=== PATIENT | male | born 1985 | race Hispanic/Latino ===

== ENCOUNTER 2017-03-16 14:37 | Observation (INO) | payer SELFPAY ==
[2017-03-16] MEDS ORDERED: Sodium Chloride 0.9% 1,000 ML IV STA (15:28)
[2017-03-16 15:50] LABS: BASO # 0.1 K/uL (0.0-0.2); BASO % 0.6 % (0.0-2.0); EOS % 0.2 % (0.0-4.0); HEMOGLOBIN 15.5 g/dL (12.0-18.0); LYMPH # 1.4 K/uL (1.0-4.3); LYMPH % 10.3 % (20.0-40.0); MEAN CELL VOLUME 85.1 fl (80.0-94.0); MEAN CORPUSCULAR HEMOGLOBIN 30.3 pg (27.0-31.0); MEAN CORPUSCULAR HGB CONC 35.6 g/dL (33.0-37.0); MEAN PLATELET VOLUME 8.7 fl (7.2-11.7); MONO # 0.7 K/uL (0.0-0.8); MONO % 5.2 % (0.0-10.0); NEUT # 11.2 K/uL (1.8-7.0); NEUT % 83.7 % (50.0-75.0); NRBC % 1.3 % (0.0-0.0); RBC 5.12 Mil/uL (4.40-5.90); RED CELL DISTRIBUTION WIDTH 12.3 % (11.5-14.5); WHITE BLOOD COUNT 13.4 K/uL (4.8-10.8)
[2017-03-16 16:09] LABS: ALB/GLOB RATIO 1.7 (1.0-2.1); ALBUMIN 4.7 g/dL (3.5-5.0); ALT/SGPT 44 U/L (21-72); AST/SGOT 38 U/L (17-59); BLOOD UREA NITROGEN 12 mg/dl (9-20); CALCIUM 9.6 mg/dL (8.4-10.2); GFR AFRICAN-AMERICAN > 60; GFR NON-AFRICAN AMERICAN > 60
--- NOTE | 2017-03-16 16:14 | ED PDOC ---
HPI: Seizure Time Seen by Provider: 03/16/17 15:07 Chief Complaint (Nursing): Seizure Chief Complaint (Provider): Seizure History Per: Patient, Other (Witnesses) History/Exam Limitations: no limitations Recent Seizure Activity Began: Just Before Arrival Additional Complaint(s): Brijesh is a 31 y/o male who was brought to the ED via EMS for seizure work-up. Patient was about to get on train and next remembers waking up. Possibly witnessed foaming at the mouth. Patient has had 3 seizures in the past, most recently 1 month ago. Currently he feels weak all over and complains of a mild headache following the episode. Denies neck pain, chest pain, nausea, vomiting, diarrhea, abdominal pain, shortness of breath, and vision changes. Not on any medications for seizures. Denies recent illness, and drug/alcohol intake. PMD: Unknown Past Medical History Reviewed: Historical Data, Nursing Documentation, Vital Signs Vital Signs: Last Vital Signs Temp Pulse Resp BP 148/98 H 03/16/17 14:41 Pulse Ox 98 03/16/17 16:46 - Medical History PMH: Anxiety, Seizures - Surgical History Surgical History: No Surg Hx - Family History Family History: States: Unknown Family Hx - Social History Current smoker - smoking cessation education provided: No Alcohol: None Drugs: Denies - Home Medications Home Medications: Ambulatory Orders Medication Instructions Recorded levETIRAcetam [Keppra] 500 mg PO BID 5 Days 03/16/17 - Allergies Allergies/Adverse Reactions: Allergies Allergy/AdvReac Type Severity Reaction Status Date / Time No Known Allergies Allergy Verified 03/16/17 14:43 Review of Systems ROS Statement: Except As Marked, All Systems Reviewed And Found Negative Constitutional: Positive for: Weakness (generalized) Eyes: Negative for: Vision Change Cardiovascular: Negative for: Chest Pain Respiratory: Negative for: Shortness of Breath Gastrointestinal: Negative for: Nausea, Vomiting, Abdominal Pain, Diarrhea Musculoskeletal: Negative for: Neck Pain Neurological: Positive for: Seizures (prior to arrival, possibly foaming at the mouth), Headache Physical Exam - Reviewed Nursing Documentation Reviewed: Yes Vital Signs Reviewed: Yes - Physical Exam Appears: Positive for: Non-toxic, No Acute Distress Head Exam: Positive for: NORMOCEPHALIC. Negative for: ATRAUMATIC (right lateral posterior scalp with laceration) Skin: Positive for: Normal Color, Warm, Dry Eye Exam: Positive for: EOMI, Normal appearance, PERRL ENT: Positive for: Other (Anterior left lateral tongue with small ecchymosis but no laceration. No loose teeth. No septal hematoma). Negative for: Nasal Congestion Neck: Positive for: Normal, Painless ROM, Supple Cardiovascular/Chest: Positive for: Regular Rate, Rhythm. Negative for: Murmur Respiratory: Positive for: Normal Breath Sounds. Negative for: Accessory Muscle Use, Respiratory Distress Gastrointestinal/Abdominal: Positive for: Normal Exam, Soft. Negative for: Tenderness Back: Positive for: Normal Inspection. Negative for: L CVA Tenderness, R CVA Tenderness, Vertebral Tenderness Extremity: Positive for: Normal ROM (fingers and hand with full ROM), Other ( right lateral 5th knuckle, dorsally with mild abrasion but no tenderness) Neurologic/Psych: Positive for: Alert, senior ux developer II-XII (intact), Oriented, Motor/ Sensory Deficits (strength is 4/5 for all extremities) - Laboratory Results Result Diagrams: 03/16/17 15:46 03/16/17 15:46 Interpretation Of Abn Labs: 13.4 wbc - ECG ECG: Positive for: Interpreted By Me, Viewed By Me ECG Rhythm: Positive for: Normal QRS, Normal ST Segment, Sinus Rhythm O2 Sat by Pulse Oximetry: 98 (RA) Pulse Ox Interpretation: Normal - Radiology X-Ray: Interpreted by Me, Viewed By Ca X-Ray Interpretation: No Acute Disease - CT Scan/US head and neck Other Rad Studies (CT/US): Read By Radiologist Other Rad Interpretation: no acute - Progress ED Course And Treament: 1859: Stable. TDAP utd. Family at bedside. Pt. and family state pt. was on keppra and stopped it on his own. Does not know dosing. Will give 1 dose 500mg and rx for 500mg po bid. AAOx3. Pain free. Tolerated PO. Ambulating with no issues. Fu with pcp and neurology. Medical Decision Making Medical Decision Making: Time: 15:29 Initial Plan: --CBC --CMP --Troponin I --Alcohol serum --Urine drug screen --Urine dipstick --CXR --EKG --NS IV 1000 ml at 1000 mls/hr --Blood glucose level --Pending CT C-spine and Head w/o contrast --Reevaluation Scribe Attestation: Documented by Neena Barrera, acting as a scribe for Ezekiel Hanks MD Provider Scribe Attestation: All medical record entries made by the Scribe were at my direction and personally dictated by me. I have reviewed the chart and agree that the record accurately reflects my personal performance of the history, physical exam, medical decision making, and the department course for this patient. I have also personally directed, reviewed, and agree with the discharge instructions and disposition. Disposition - Clinical Impression Clinical Impression: Head injury, Laceration, Seizure - Patient ED Disposition Is Patient to be Admitted: No Counseled Patient/Family Regarding: Studies Performed, Diagnosis, Need For Followup, Rx Given - Disposition Referrals: [facility] [Outside] - 03/18/17 Bernardo Lauren MD [Medical Doctor] - 03/18/17 Disposition: Routine/Home Disposition Time: 19:11 Condition: STABLE Additional Instructions: Return if not better in 3 days. Prescriptions: levETIRAcetam [Keppra] 500 mg PO BID 5 Days Instructions: Epilepsy (ED), Head Injury (ED), Laceration (ED) Forms: [employer] ([place])
[2017-03-16 16:57] LABS: BARBITURATES, UR NEGATIVE (NEGATIVE); BENZODIAZEPINES, UR NEGATIVE (NEGATIVE); OPIATES, UR NEGATIVE (NEGATIVE); PHENCYCLIDINE, UR NEGATIVE (NEGATIVE)
[2017-03-16] MEDS ORDERED: levETIRAcetam 100 mg/ml (5ml) Oral Syringe PO STA (19:13)
--- NOTE | 2017-03-16 19:57 | CT ---
PROCEDURE: CT HEAD WITHOUT CONTRAST. HISTORY: headache COMPARISON: None available. TECHNIQUE: Axial computed tomography images were obtained through the head/brain without intravenous contrast. Radiation dose: Total exam DLP = 1220 mGy-cm. This CT exam was performed using one or more of the following dose reduction techniques: Automated exposure control, adjustment of the mA and/or kV according to patient size, and/or use of iterative reconstruction technique. FINDINGS: HEMORRHAGE: No intracranial hemorrhage. BRAIN: No mass effect or edema. No atrophy or chronic microvascular ischemic changes. VENTRICLES: Unremarkable. No hydrocephalus. CALVARIUM: Unremarkable. PARANASAL SINUSES: Unremarkable as visualized. No significant inflammatory changes. MASTOID AIR CELLS: Unremarkable as visualized. No inflammatory changes. OTHER FINDINGS: None. IMPRESSION: Normal CT of the Head.
--- NOTE | 2017-03-16 19:58 | CT ---
PROCEDURE: CT Cervical Spine without contrast HISTORY: <neck pain> COMPARISON: None available. TECHNIQUE: Axial computed tomography images were obtained of the cervical spine without the use of intravenous contrast. Coronal and sagittal reformatted images were created and reviewed. Radiation dose: Total exam DLP = 697 mGy-cm. This CT exam was performed using one or more of the following dose reduction techniques: Automated exposure control, adjustment of the mA and/or kV according to patient size, and/or use of iterative reconstruction technique. FINDINGS: VERTEBRAE: No fracture. Normal alignment. No destructive bony lesion. DISCS/SPINAL CANAL/NEURAL FORAMINA: No significant central canal or neural foraminal stenosis. Discs heights are grossly preserved. PARASPINAL SOFT TISSUES: Unremarkable. OTHER FINDINGS: None. IMPRESSION: Unremarkable CT of the cervical spine.
--- NOTE | 2017-03-16 20:07 | CP.PCM.HP ---
History of Present Illness - History of Present Illness History of Present Illness: PCP: None Chief Complaint: Seizure episode Patient seen and examined in the ED with his parents present. HPI: The hx is obtained from the Patient and the medical record. 31 years old male, brought to the ED because of a witnessed seizure with him falling on the street hitting the right back of the head , foaming at the mouth with Brief LOC. No referral of tonic clonic episode nor Urinary incontinence, no biting of the tongue. He has hx of 3 prior seizures, all occurring in 2017, the last being one month ago. His seizure was worked up in a [facility] and he was discharged on Keppra which he has stopped taking. Here in the ED he was awake, alert given Oral keppra, His laceration at the left occipital sutured. he was about to be discharged and went to the Bathroom where he had a syncopal episode. because of this he is being admitted for Observation. PMH: Seizure; Anxiety PSH: No surgical hx SH: No illegal drug use; No alcohol use; No smoking FH: No hereditary diseases Allergies: NKDA Medication: Keppra 500mg BID. Patient not taking medication Present on Admission - Present on Admission Any Indicators Present on Admission: No History of DVT/PE: No History of Uncontrolled Diabetes: No Urinary Catheter: No Decubitus Ulcer Present: No Review of Systems - Constitutional Constitutional: Headache, Weakness. absent: Fever - EENT Eyes: absent: Diplopia, Floaters, Requires Corrective Lenses, Sees Flashes Ears: absent: Decreased Hearing, Ear Discharge, Ear Pain, Tinnitus Nose/Mouth/Throat: absent: Epistaxis, Nasal Congestion, Nasal Discharge, Sinus Pain, Sinus Pressure - Cardiovascular Cardiovascular: absent: Chest Pain, Diaphoresis, Dyspnea, Edema, Palpitations - Respiratory Respiratory: absent: Cough, Dyspnea, Wheezing, Stridor, Chest Congestion - Gastrointestinal Gastrointestinal: Nausea. absent: Constipation, Diarrhea - Genitourinary Genitourinary: absent: Dysuria, Flank Pain, Hematuria, Urinary Frequency - Musculoskeletal Musculoskeletal: absent: Arthralgias, Joint Swelling, Muscle Cramps, Myalgias - Integumentary Integumentary: absent: Pruritus, Rash, Skin Ulcer, Sores, Striae, Swelling - Neurological Neurological: Headaches, Weakness. absent: Confusion, Focal Weakness, Paresthesias - Psychiatric Psychiatric: Anxiety. absent: Depression, Panic Attacks - Endocrine Endocrine: absent: Palpitations, Polydipsia, Polyphagia, Polyuria - Hematologic/Lymphatic Hematologic: absent: Easy Bleeding, Easy Bruising Past Patient History - Past Social History Smoking Status: Never Smoked Chewing Tobacco Use: No Cigar Use: No Alcohol: None Drugs: Denies - CARDIAC Hx Cardiac Disorders: No - PULMONARY Hx Respiratory Disorders: No - NEUROLOGICAL Hx Seizures: Yes - HEENT Hx HEENT Problems: No - RENAL Hx Chronic Kidney Disease: No - ENDOCRINE/METABOLIC Hx Endocrine Disorders: No - HEMATOLOGICAL/ONCOLOGICAL Hx Blood Disorders: No - INTEGUMENTARY Hx Dermatological Problems: No - MUSCULOSKELETAL/RHEUMATOLOGICAL Hx Musculoskeletal Disorders: No - GASTROINTESTINAL Hx Gastrointestinal Disorders: No - GENITOURINARY/GYNECOLOGICAL Hx Genitourinary Disorders: No - PSYCHIATRIC Hx Anxiety: Yes - SURGICAL HISTORY Hx Surgeries: No - ANESTHESIA Hx Anesthesia: No Meds Home Medications: Home Medication List Medication Instructions Recorded Confirmed Type levETIRAcetam [Keppra] 500 mg PO BID 5 Days 03/16/17 Rx Allergies/Adverse Reactions: Allergies Allergy/AdvReac Type Severity Reaction Status Date / Time No Known Allergies Allergy Verified 03/16/17 14:43 Physical Exam - Constitutional Appears: No Acute Distress - Head Exam Head Exam: NORMAL INSPECTION, NORMOCEPHALIC Additional comments: [id number] at the right occipital region with valerie - Eye Exam Eye Exam: EOMI, Normal appearance Pupil Exam: NORMAL ACCOMODATION, PERRL - ENT Exam ENT Exam: Mucous Membranes Moist, Normal Exam, Normal External Ear Exam, Normal Oropharynx - Neck Exam Neck exam: Positive for: Full Rom, Normal Inspection. Negative for: Lymphadenopathy, Tenderness - Respiratory Exam Respiratory Exam: Clear to Auscultation Bilateral. absent: Rales, Rhonchi, Wheezes - Cardiovascular Exam Cardiovascular Exam: REGULAR RHYTHM, RRR, +S1, +S2. absent: Gallop - GI/Abdominal Exam GI & Abdominal Exam: Normal Bowel Sounds, Soft. absent: Mass, Organomegaly, Tenderness - Rectal Exam Rectal Exam: Deferred - Extremities Exam Extremities exam: Positive for: full ROM, normal inspection. Negative for: calf tenderness, pedal edema - Back Exam Back exam: NORMAL INSPECTION. absent: CVA tenderness (L), CVA tenderness (R) - Neurological Exam Neurological exam: Alert, CN II-XII Intact, Oriented x3, Reflexes Normal - Psychiatric Exam Psychiatric exam: Flat Affect - Skin Skin Exam: Dry, Intact, Normal Color, Warm Results - Vital Signs Recent Vital Signs: Last Vital Signs Temp Pulse Resp BP 148/98 H 03/16/17 14:41 Pulse Ox 98 03/16/17 19:13 - Labs Result Diagrams: 03/16/17 15:46 03/16/17 15:46 Labs: Laboratory Results - last 24 hr 03/16/17 03/16/17 03/16/17 15:46 15:46 16:09 WBC 13.4 H RBC 5.12 Hgb 15.5 Hct 43.5 MCV 85.1 MCH 30.3 MCHC 35.6 RDW 12.3 Plt Count 137 MPV 8.7 Neut % (Auto) 83.7 H Lymph % (Auto) 10.3 L [place] % (Auto) 5.2 Eos % (Auto) 0.2 Baso % (Auto) 0.6 Neut # 11.2 H Lymph # 1.4 [place] # 0.7 Eos # 0.0 Baso # 0.1 Sodium 139 Potassium 4.6 Chloride 103 Carbon Dioxide 25 Anion Gap 16 BUN 12 Creatinine 0.9 Est GFR ( Amer) > 60 Est GFR (Non-Af Amer) > 60 POC Glucose (mg/dL) 106 Random Glucose 102 Calcium 9.6 Total Bilirubin 0.8 AST 38 ALT 44 Alkaline Phosphatase 60 Troponin I < 0.0120 Total Protein 7.5 Albumin 4.7 Globulin 2.8 Albumin/Globulin Ratio 1.7 Urine Opiates Screen Urine Methadone Screen Ur Barbiturates Screen Ur Phencyclidine Scrn Ur Amphetamines Screen U Benzodiazepines Scrn U Oth Cocaine Metabols U Cannabinoids Screen Alcohol, Quantitative < 10 03/16/17 16:31 WBC RBC Hgb Hct MCV MCH MCHC RDW Plt Count MPV Neut % (Auto) Lymph % (Auto) [place] % (Auto) Eos % (Auto) Baso % (Auto) Neut # Lymph # [place] # Eos # Baso # Sodium Potassium Chloride Carbon Dioxide Anion Gap BUN Creatinine Est GFR ( Amer) Est GFR (Non-Af Amer) POC Glucose (mg/dL) Random Glucose Calcium Total Bilirubin AST ALT Alkaline Phosphatase Troponin I Total Protein Albumin Globulin Albumin/Globulin Ratio Urine Opiates Screen Negative Urine Methadone Screen Negative Ur Barbiturates Screen Negative Ur Phencyclidine Scrn Negative Ur Amphetamines Screen Negative U Benzodiazepines Scrn Negative U Oth Cocaine Metabols Negative U Cannabinoids Screen Negative Alcohol, Quantitative - EKG Data EKG comments: Sinus rhythm 92/min. no sign of ischemia - Imaging and Cardiology Chest x-ray Status: Image reviewed by me Additional comment: No infiltrate. CT scan - head Status: Image reviewed by me, Report reviewed by me Additional comment: No abnormalities seen CT Cervical Spoine Status: Report reviewed by me Additional comment: Unremarkable Assessment & Plan - Assessment and Plan (Free Text) Assessment: #.Seizure #. Head injury with laceration #. Syncopy #. leukocytosis Plan: 31 years old male, brought to the ED because of a witnessed seizure with him falling on the street hitting the right back of the head , foaming at the mouth with Brief LOC. He has hx of 3 prior seizures,worked up in Hospital in [place]. Now noncompliant with medication. Here in the ED he was about to be discharged and went to the Bathroom where he had a syncopal episode. #.Seizure episode due to noncompliance with medication - Keppra 500mg Oral BID - Consult Neurology Dr Lauren #. Head injury with laceration - Sutured in ED #. Syncopy Prpbably secondary to orthostatic Hypotension r/o arrhythmia - Observe in Telemetry - Cardiac monitoring #. Neutrophylic leukocytosis reactional - Follow CBC #. DVT Prophylaxis with SCD #. Code Status: Full - Date & Time Date: 03/16/17 Time: 20:07
--- NOTE | 2017-03-16 20:13 | RAD ---
HISTORY: dyspnea COMPARISON: No prior. FINDINGS: LUNGS: No active pulmonary disease. PLEURA: No significant pleural effusion identified, no pneumothorax apparent. CARDIOVASCULAR: Normal. OSSEOUS STRUCTURES: No significant abnormalities. VISUALIZED UPPER ABDOMEN: Normal. OTHER FINDINGS: None. IMPRESSION: No active disease.
[2017-03-16] MEDS ORDERED: Dextrose 5%/0.9% NS 1,000 ML IV SCH (21:00)
[2017-03-16] MEDS ORDERED: Acetaminophen 650mg/20.3ml solution UD PO PRN (22:52)
[2017-03-16 23:46] VITALS: RESP 18
[2017-03-17 08:07] LABS: BASO % 0.3 % (0.0-2.0); EOS % 0.2 % (0.0-4.0); HEMOGLOBIN 13.6 g/dL (12.0-18.0); LYMPH # 1.8 K/uL (1.0-4.3); LYMPH % 17.7 % (20.0-40.0); MEAN CELL VOLUME 84.1 fl (80.0-94.0); MEAN CORPUSCULAR HEMOGLOBIN 30.3 pg (27.0-31.0); MEAN PLATELET VOLUME 8.9 fl (7.2-11.7); MONO # 0.7 K/uL (0.0-0.8); NEUT # 7.8 K/uL (1.8-7.0); NEUT % 74.8 % (50.0-75.0); NRBC % 0.1 % (0.0-0.0); RBC 4.49 Mil/uL (4.40-5.90); RED CELL DISTRIBUTION WIDTH 12.3 % (11.5-14.5); WHITE BLOOD COUNT 10.4 K/uL (4.8-10.8)
[2017-03-17 08:14] VITALS: O2SAT 97
[2017-03-17] MEDS ORDERED: Enoxaparin 40 mg Syringe SC SCH (09:00)
--- NOTE | 2017-03-17 09:45 | CARD ---
APPROVED REPORT EKG Measurement Heart [id number] <Conclusion> Sinus tachycardia Possible Left atrial enlargement Borderline ECG
--- NOTE | 2017-03-17 10:01 | CP.PCM.DIS ---
Provider - Provider Date of Admission: 03/16/17 20:01 Attending physician: Bernard Foreman Primary care physician: None Time Spent in preparation of Discharge (in minutes): 30 Hospital Course - Lab Results Lab Results: Most Recent Lab Values WBC 10.4 K/uL (4.8-10.8) 03/17/17 05:30 RBC 4.49 Mil/uL (4.40-5.90) 03/17/17 05:30 Hgb 13.6 g/dL (12.0-18.0) 03/17/17 05:30 Hct 37.8 % (35.0-51.0) 03/17/17 05:30 MCV 84.1 fl (80.0-94.0) 03/17/17 05:30 MCH 30.3 pg (27.0-31.0) 03/17/17 05:30 MCHC 36.0 g/dL (33.0-37.0) 03/17/17 05:30 RDW 12.3 % (11.5-14.5) 03/17/17 05:30 Plt Count 139 K/uL (130-400) 03/17/17 05:30 MPV 8.9 fl (7.2-11.7) 03/17/17 05:30 Neut % (Auto) 74.8 % (50.0-75.0) 03/17/17 05:30 Lymph % (Auto) 17.7 % (20.0-40.0) L 03/17/17 05:30 [place] % (Auto) 7.0 % (0.0-10.0) 03/17/17 05:30 Eos % (Auto) 0.2 % (0.0-4.0) 03/17/17 05:30 Baso % (Auto) 0.3 % (0.0-2.0) 03/17/17 05:30 Neut # 7.8 K/uL (1.8-7.0) H 03/17/17 05:30 Lymph # 1.8 K/uL (1.0-4.3) 03/17/17 05:30 [place] # 0.7 K/uL (0.0-0.8) 03/17/17 05:30 Eos # 0.0 K/uL (0.0-0.7) 03/17/17 05:30 Baso # 0.0 K/uL (0.0-0.2) 03/17/17 05:30 Sodium 139 mmol/l (132-148) 03/16/17 15:46 Potassium 4.6 MMOL/L (3.6-5.0) 03/16/17 15:46 Chloride 103 mmol/L (98-107) 03/16/17 15:46 Carbon Dioxide 25 mmol/L (22-30) 03/16/17 15:46 Anion Gap 16 (10-20) 03/16/17 15:46 BUN 12 mg/dl (9-20) 03/16/17 15:46 Creatinine 0.9 mg/dL (0.8-1.5) 03/16/17 15:46 Est GFR ( Amer) > 60 03/16/17 15:46 Est GFR (Non-Af Amer) > 60 03/16/17 15:46 POC Glucose (mg/dL) 106 mg/dL (65-110) 03/16/17 16:09 Random Glucose 102 mg/dL (75-110) 03/16/17 15:46 Calcium 9.6 mg/dL (8.4-10.2) 03/16/17 15:46 Total Bilirubin 0.8 mg/dl (0.2-1.3) 03/16/17 15:46 AST 38 U/L (17-59) 03/16/17 15:46 ALT 44 U/L (21-72) 03/16/17 15:46 Alkaline Phosphatase 60 U/L (38-126) 03/16/17 15:46 Troponin I < 0.0120 ng/mL (0.00-0.120) 03/16/17 15:46 Total Protein 7.5 G/DL (6.3-8.2) 03/16/17 15:46 Albumin 4.7 g/dL (3.5-5.0) 03/16/17 15:46 Globulin 2.8 gm/dL (2.2-3.9) 03/16/17 15:46 Albumin/Globulin Ratio 1.7 (1.0-2.1) 03/16/17 15:46 Urine Opiates Screen Negative (NEGATIVE) 03/16/17 16:31 Urine Methadone Screen Negative (NEGATIVE) 03/16/17 16:31 Ur Barbiturates Screen Negative (NEGATIVE) 03/16/17 16:31 Ur Phencyclidine Scrn Negative (NEGATIVE) 03/16/17 16:31 Ur Amphetamines Screen Negative (NEGATIVE) 03/16/17 16:31 U Benzodiazepines Scrn Negative (NEGATIVE) 03/16/17 16:31 U Oth Cocaine Metabols Negative (NEGATIVE) 03/16/17 16:31 U Cannabinoids Screen Negative (NEGATIVE) 03/16/17 16:31 Alcohol, Quantitative < 10 mg/dl (0-10) 03/16/17 15:46 - Hospital Course Hospital Course: 31 years old male, brought to the ED because of a witnessed seizure with him falling on the street hitting the right back of the head , foaming at the mouth with Brief LOC. He has hx of 3 prior seizures,worked up in Hospital in [place]. Now noncompliant with medication. Here in the ED he was about to be discharged and went to the Bathroom where he had a syncopal episode. patient placed under observation in telemetry CT head showed no acute pathology Ct spine showed no acute pathology patient was postictal after seizure and with no recollection of what happened and what transpired in Er and what tests were performed today he is AAOx3 , with no neuro deficits , hemodynamically stable, afebrile Had long discussion with patient and his parents. He will need to continue treatment with Keppar as out patient and follow up with a neurologist or PMD counselled on compliance with meds , avoiding etoh or drugs patient states that his seizures get triggered by anxiety and high levels of stress will d/c patient home on Keppra liquid Po 750 mg po BID He had a laceration to the back of his head that was stapled in ER with 4 valerie. He will need to return to ER in 1 week for staple removal . 1.Seizure episode due to noncompliance with medication Keppra 750mg Oral BID follow up with neuro as out patient CT head with no acute pathology 2. Head injury with laceration Sutured in ED remove sutures in 1 week 3. Syncopy Probably secondary to orthostatic Hypotension Observed in Telemetry tele monitor showed no arrythmia 4 Neutrophylic leukocytosis-- most likely reactive Discharge Exam - Head Exam Head Exam: NORMAL INSPECTION, NORMOCEPHALIC Additional comments: right occipital laceration 2 cm in length with valerie in place - Eye Exam Eye Exam: EOMI, Normal appearance, PERRL Pupil Exam: NORMAL ACCOMODATION - ENT Exam ENT Exam: Mucous Membranes Moist, Normal Exam - Neck Exam Neck exam: Full Rom, Normal Inspection - Respiratory Exam Respiratory Exam: Clear to PA & Lateral, NORMAL BREATHING PATTERN. absent: Rales, Rhonchi, Wheezes - Cardiovascular Exam Cardiovascular Exam: REGULAR RHYTHM, RRR, +S1, +S2. absent: JVD - GI/Abdominal Exam GI & Abdominal Exam: Normal Bowel Sounds, Soft. absent: Distended, Guarding, Rebound, Tenderness - Rectal Exam Rectal Exam: Deferred - Extremities Exam Extremities exam: normal capillary refill, normal inspection, pedal pulses present - Back Exam Back exam: NORMAL INSPECTION - Neurological Exam Neurological exam: Alert, CN II-XII Intact, Oriented x3, Reflexes Normal - Psychiatric Exam Psychiatric exam: Normal Affect, Normal Mood - Skin Skin Exam: Dry, Intact, Normal Color, Warm Discharge Plan - Discharge Medications Prescriptions: levETIRAcetam Solution [Keppra] 750 mg PO BID #450 bottle - Follow Up Plan Condition: STABLE Disposition: HOME/ ROUTINE Patient education suggested?: Yes Instructions: Laceration (ED), Head Injury (ED), Epilepsy (ED) Additional Instructions: Return if not better in 3 days. Referrals: [facility] [Outside] - 03/18/17 Bernardo Lauren MD [Medical Doctor] - 03/18/17
[2017-03-17 12:22] VITALS: BP 111/67; PULSE 83; TEMP 98.1
[2017-03-17] MEDS ORDERED: levETIRAcetam 100 mg/ml (5ml) Oral Syringe PO ONE (13:31)
== END 2017-03-17 14:55 | disposition home or self-care (01) ==
LOC: H.ER 14:37 → H.ERHOLD 20:01 → H.TEL 22:24
PROVIDERS: ADMIT Internal Medicine; ATTEND Internal Medicine
DX: R56.9 Unspecified convulsions (principal); I95.1 Orthostatic hypotension; S01.01XA Laceration without foreign body of scalp, initial encounter; F41.9 Anxiety disorder, unspecified; D72.829 Elevated white blood cell count, unspecified; W18.39XA Other fall on same level, initial encounter; Z91.14 Patient's other noncompliance with medication regimen; Y92.410 Unspecified street and highway as the place of occurrence of the external cause
CPT/HCPCS: 12001; 36415; 70450; 71010; 72125; 80053; 82948; 84484; 85025; 93005; 99285; G0378; G0480; J7040

== ENCOUNTER 2017-03-20 15:09 | Emergency (ER) | payer SELFPAY ==
[2017-03-20 15:20] VITALS: BP 103/58; PULSE 85; RESP 16; TEMP 98; O2SAT 100
--- NOTE | 2017-03-20 15:47 | ED PDOC ---
HPI: Wound Care - HPI Time Seen by Provider: 03/20/17 15:27 Chief Complaint (Nursing): Wound Check Chief Complaint (Provider): wound check History Per: Patient Exam Limitations: no limitations Onset/Duration Of Symptoms: Days (4) Location Of Injury: Right: Head Additional Complaint(s): The patient is a 31 y/o male, past medical history of seizures, presents to the ED for a wound check after having valerie placed in scalp 4 days ago. Patient denies any swelling, drainage or pain to the site. He reports his tetanus is up to date. Patient offers no additional medical complaints. Past Medical History Reviewed: Historical Data, Nursing Documentation, Vital Signs Vital Signs: Last Vital Signs Temp 98.0 F 03/20/17 15:17 Pulse 85 03/20/17 15:17 Resp 16 03/20/17 15:17 BP 103/58 L 03/20/17 15:17 Pulse Ox 100 03/20/17 15:17 - Medical History PMH: Anxiety, Seizures - Surgical History Surgical History: No Surg Hx - Family History Family History: States: No Known Family Hx - Living Arrangements Living Arrangements: With Family - Social History Current smoker - smoking cessation education provided: No Alcohol: None Drugs: Denies - Immunization History Hx Tetanus Toxoid Vaccination: Yes - Home Medications Home Medications: Ambulatory Orders Medication Instructions Recorded levETIRAcetam Solution [Keppra] 750 mg PO BID #450 bottle 03/17/17 - Allergies Allergies/Adverse Reactions: Allergies Allergy/AdvReac Type Severity Reaction Status Date / Time No Known Allergies Allergy Verified 03/20/17 15:17 Review of Systems ROS Statement: Except As Marked, All Systems Reviewed And Found Negative Constitutional: Negative for: Fever, Chills Skin: Positive for: Other (wound check of stapled scalp laceration) Physical Exam - Reviewed Nursing Documentation Reviewed: Yes Vital Signs Reviewed: Yes - Physical Exam Appears: Positive for: Well, Non-toxic, No Acute Distress Head Exam: Positive for: NORMAL INSPECTION (well healing stapled laceration noted to right parietal scalp with no infection noted), NORMOCEPHALIC Skin: Positive for: Normal Color. Negative for: Rash Eye Exam: Positive for: Normal appearance Neurologic/Psych: Positive for: Alert, Oriented. Negative for: Motor/Sensory Deficits - ECG O2 Sat by Pulse Oximetry: 100 (RA) Pulse Ox Interpretation: Normal Medical Decision Making Medical Decision Making: Time: 1535 Impression: Wound check Plan: -- Wound checked and shows no signs of infection. [place] have been in place for 4 days, too soon for removal today. Patient instructed to return in 1 week from today for staple removal. Scribe Attestation: Documented by Hermelinda Espinal acting as a scribe for CARYN Blunt Provider Attestation: All medical record entries made by the Scribe were at my direction and personally dictated by me. I have reviewed the chart and agree that the record accurately reflects my personal performance of the history, physical exam, medical decision making, and the department course for this patient. I have also personally directed, reviewed, and agree with the discharge instructions and disposition. Disposition - Clinical Impression Clinical Impression: Encounter for wound re-check - Patient ED Disposition Is Patient to be Admitted: No Counseled Patient/Family Regarding: Diagnosis, Need For Followup - Disposition Referrals: [facility] [Outside] Disposition: Routine/Home Disposition Time: 15:46 Condition: STABLE Additional Instructions: Keep area clean and dry. Return in 1 week for staple removal. Instructions: Staple Care (ED) Forms: [facility] ([place])
== END 2017-03-20 16:01 | disposition home or self-care (01) ==
LOC: H.ER 15:09
DX: Z48.00 Encounter for change or removal of nonsurgical wound dressing (principal); F41.9 Anxiety disorder, unspecified; Z86.69 Personal history of other diseases of the nervous system and sense organs

== ENCOUNTER 2017-03-23 15:36 | Emergency (ER) | payer SELFPAY ==
[2017-03-23 15:51] VITALS: BP 111/74; PULSE 79; RESP 18; TEMP 98.4; O2SAT 98
--- NOTE | 2017-03-23 16:13 | ED PDOC ---
HPI: Wound Care - HPI Time Seen by Provider: 03/23/17 16:11 Chief Complaint (Nursing): Suture/Staple Removal Chief Complaint (Provider): staple removal. Additional Complaint(s): 31yo M in Ed for eval of staple removal from scalp. no acute fever chills nausea or vomiting no headache and no drainage from scalp. Past Medical History Reviewed: Historical Data, Nursing Documentation, Vital Signs Vital Signs: Last Vital Signs Temp 98.4 F 03/23/17 15:47 Pulse 79 03/23/17 15:47 Resp 18 03/23/17 15:47 BP 111/74 03/23/17 15:47 Pulse Ox 98 03/23/17 15:47 - Medical History PMH: Anxiety, Seizures Denies: Chronic Kidney Disease - Family History Family History: States: Unknown Family Hx - Immunization History Hx Tetanus Toxoid Vaccination: Yes - Home Medications Home Medications: Ambulatory Orders Medication Instructions Recorded levETIRAcetam Solution [Keppra] 750 mg PO BID #450 bottle 03/17/17 - Allergies Allergies/Adverse Reactions: Allergies Allergy/AdvReac Type Severity Reaction Status Date / Time No Known Allergies Allergy Verified 03/20/17 15:17 Review of Systems ROS Statement: Except As Marked, All Systems Reviewed And Found Negative Skin: Negative for: Lesions Physical Exam - Reviewed Nursing Documentation Reviewed: Yes Vital Signs Reviewed: Yes - Physical Exam Appears: Positive for: Well, Non-toxic, No Acute Distress Head Exam: Positive for: NORMAL INSPECTION, NORMOCEPHALIC. Negative for: ATRAUMATIC (valerie noted(#4) ) Skin: Positive for: Normal Color, Warm, DRY Cardiovascular/Chest: Positive for: Regular Rate, Rhythm Respiratory: Positive for: CNT, Normal Breath Sounds Neurologic/Psych: Positive for: Alert, Oriented - ECG O2 Sat by Pulse Oximetry: 98 - Progress ED Course And Treament: valerie removed from scalp without complications. Medical Decision Making Medical Decision Making: advised to have pmd f.u Disposition - Clinical Impression Clinical Impression: Removal of staple - Patient ED Disposition Is Patient to be Admitted: No - Disposition Disposition: Routine/Home Disposition Time: 16:18 Condition: GOOD Instructions: Chronic Wound Care (ED) Forms: [employer] (Citizen [place])
== END 2017-03-23 16:17 | disposition home or self-care (01) ==
LOC: H.ER 15:36
DX: Z48.02 Encounter for removal of sutures (principal); F41.9 Anxiety disorder, unspecified